=== PATIENT | male | born 1965 | race Caucasian/White ===

== ENCOUNTER 2016-11-24 09:27 | Emergency (ER) | payer BC ==
[2016-11-24] MEDS ORDERED: ACETAMINOPHEN TAB 500 MG TAB PO STA (10:04)
--- NOTE | 2016-11-24 10:05 | ED ---
General Adult HPI - General Chief complaint: Upper Respiratory Infection Stated complaint: JACLYN, RIB PAIN RADIATING TO BACK, COUGHING Time Seen by Provider: 11/24/16 09:56 Source: patient, RN notes reviewed Mode of arrival: ambulatory Limitations: no limitations - History of Present Illness Initial comments: Patient is a 51-year-old male who presents emergency room today with a chief complaint of cough congestion over the last 2 days. He does admit to sputum production as been white in color. There is some mild body aches. States not noticed any fevers at home. No chills. Patient does admit to increased rhinorrhea with a mild sore throat. He states because she is expressing some lower rib pain and back radiating around to the front. He denies any other complaints or associated symptoms. Patient denies any recent fever, chills, shortness of breath, chest pain, back pain, abdominal pain, nausea or vomiting, numbness or tingling, dysuria or hematuria, constipation or diarrhea, headaches or visual changes, or any other complaints. - Related Data Previous Rx's Medication Instructions Recorded Ibuprofen [Motrin] 600 mg PO Q6HR PRN #40 day 11/24/16 Oseltamivir [Tamiflu] 75 mg PO Q12HR 5 Days 11/24/16 Allergies Allergy/AdvReac Type Severity Reaction Status Date / Time No Known Allergies Allergy Verified 11/24/16 09:42 Review of Systems ROS Statement: Those systems with pertinent positive or pertinent negative responses have been documented in the HPI. ROS Other: All systems not noted in ROS Statement are negative. Past Medical History Past Medical History: No Reported History History of Any Multi-Drug Resistant Organisms: None Reported Past Surgical History: No Surgical Hx Reported Past Psychological History: No Psychological Hx Reported Smoking Status: Current some day smoker Past Alcohol Use History: None Reported Past Drug Use History: None Reported General Exam - General Exam Comments Initial Comments: General: The patient is awake and alert, in no distress, and does not appear acutely ill. Eye: Pupils are equal, round and reactive to light, extra-ocular movements are intact. No nystagmus. There is normal conjunctiva bilaterally. No signs of icterus. Ears, nose, mouth and throat: There are moist mucous membranes and no oral lesions. TMs clear bilaterally. Neck: The neck is supple, there is no tenderness or JVD. Cardiovascular: There is a regular rate and rhythm. No murmur, rub or gallop is appreciated. Respiratory: Lungs are clear to auscultation, respirations are non-labored, breath sounds are equal. No wheezes, stridor, rales, or rhonchi. Gastrointestinal: Soft, non-distended, non-tender abdomen without masses or organomegaly noted. There is no rebound or guarding present. No CVA tenderness. Bowel sounds are unremarkable. Musculoskeletal: Normal ROM, no tenderness. Strength 5/5. Sensation intact. Pulses equal bilaterally 2+. Neurological: A&O x 3. CN II-XII intact, There are no obvious motor or sensory deficits. Coordination appears grossly intact. Speech is normal. Skin: Skin is warm and dry and no rashes or lesions are noted. Psychiatric: Cooperative, appropriate mood & affect, normal judgment. Limitations: no limitations Course Vital Signs 11/24/16 09:38 Temperature 101.3 F H Pulse Rate 128 H Respiratory 18 Rate Blood Pressure 136/76 O2 Sat by Pulse 95 Oximetry Medical Decision Making - Medical Decision Making Patient reexamined at this time shows no signs of distress. Chest x-ray negative. Patient's influenza be positive. Will be started on Tamiflu his symptoms started 2 days ago. Advised Tylenol/ibuprofen for pain and body aches. Will be given cough suppressant to go home with. - Lab Data Lab Results 11/24/16 Range/Units 10:12 Influenza Type A RNA Not Detected (Not Detectd) Influenza Type B (PCR) Detected H (Not Detectd) Disposition Clinical Impression: Influenza B Disposition: HOME SELF-CARE Condition: Good Instructions: Influenza (ED) Additional Instructions: Please use medication as discussed. Please follow-up with family doctor in the next 2 days of symptoms have not improved. Please return to emergency room if the symptoms increase or worsen or for any other concerns. Prescriptions: Ibuprofen [Motrin] 600 mg PO Q6HR PRN #40 day PRN Reason: Pain Oseltamivir [Tamiflu] 75 mg PO Q12HR 5 Days Time of Disposition: 11:13
--- NOTE | 2016-11-24 10:57 | XR ---
EXAMINATION TYPE: XR chest 2V DATE OF EXAM: 11/24/2016 10:53 AM COMPARISON: NONE HISTORY: Cough and flulike symptoms per patient. Chest pain per order TECHNIQUE: Frontal and lateral views of the chest are obtained. FINDINGS: There is no focal air space opacity, pleural effusion, or pneumothorax seen. The cardiac silhouette size is within normal limits. The osseous structures are intact. IMPRESSION: No suspicious acute infiltrate is present.
[2016-11-24 11:28] VITALS: BP 149/75; PULSE 105; RESP 20; TEMP 99.9
== END 2016-11-24 11:27 | disposition home or self-care (01) ==
LOC: EC 09:27
DX: J10.1 Influenza due to other identified influenza virus with other respiratory manifestations (principal); F17.200 Nicotine dependence, unspecified, uncomplicated
CPT/HCPCS: 71020; 87502; 99283

== ENCOUNTER → 2018-01-06 | Outpatient (CLI) | payer BC ==
--- NOTE | 2018-01-06 15:57 | XR ---
EXAMINATION TYPE: XR shoulder complete RT DATE OF EXAM: 01/06/2018 CLINICAL HISTORY: Persistent pain TECHNIQUE: Three views of the right shoulder are obtained. COMPARISON: None. FINDINGS: There is no acute fracture/dislocation evident in the right shoulder. The acromioclavicul ar and glenohumeral joint spaces appear within normal limits. The visualized ribs and right lung are intact and unremarkable. IMPRESSION: Unremarkable study.
--- NOTE | 2018-01-06 15:59 | XR ---
EXAMINATION TYPE: XR cervical spine limited DATE OF EXAM: 01/06/2018 TECHNIQUE: Frontal, lateral, and swimmer's view of the cervical spine are obtained. HISTORY: [id number] cervicalgia, COMPARISON: None FINDINGS: The cervical spine is visualized in its entirety from C1 thru the top of T1 level, it is s traightened in alignment without evidence of acute fracture or dislocation. The pre-vertebral soft t issue appears within normal limits. The C1-C2 articulation is suboptimally evaluated without dedicat ed open mouth view. There is mild to moderate disc space narrowing and mild anterior spurring C5-C6 l evel. There is mild disc space narrowing C6-C7 level. Overlying soft tissue is unremarkable. IMPRESSION: Straightening of cervical spine with degenerative changes C5-C6 and C6-C7 level.
== END | disposition home or self-care (01) ==
LOC: RADXRYALE 15:36
PROVIDERS: ATTEND Family Medicine
DX: M47.812 Spondylosis without myelopathy or radiculopathy, cervical region (principal); M43.8X2 Other specified deforming dorsopathies, cervical region; M25.511 Pain in right shoulder
CPT/HCPCS: 72040

== ENCOUNTER → 2018-02-07 | Outpatient (CLI) | payer BC ==
--- NOTE | 2018-02-07 12:31 | MR ---
MRI CERVICAL SPINE: CLINICAL HISTORY: Cervicalgia and paresthesias scan per order. Headache with chronic neck pain into s houlder and right arm causing pain or numbness for 2 months per patient. TECHNIQUE: Multiplanar, multisequence imaging of the cervical spine is performed without IV contrast. COMPARISON: Cervical spine x-ray January 06, 2018 FINDINGS: Exam is suboptimal due to some motion artifact degradation particularly sagittal T2 sequenc es. Sagittal images of the cervical spine show the craniocervical junction to appear within normal li mits. The cervical and upper thoracic spinal cord is normal in course, caliber, and signal. Vertebr al alignment is anatomic. Mild disc space narrowing C4-C5 through C6-C7 levels with small posterior d isc herniations mildly effacing anterior thecal sac are seen on sagittal images. The vertebral body a nd intravertebral disk heights otherwise are normal. The bone marrow signal intensity is within norm al limits. No significant spurring is seen. Axial images show the C2-C3 and C3-C4 levels to appear within normal limits. Axial images at C4-C5 level show some uncovertebral facet degenerative changes bilaterally neural for maria m are patent. There is right paracentral disc protrusion mildly effacing anterior thecal sac on a xial image 37. Axial images at C5-C6 level show broad-based posterior disc protrusion with more prominent right para central component axial image 26 effacing anterior thecal sac and causing moderate right greater than left bilateral neural foraminal narrowing. Axial images at C6-C7 level show tiny central disc protrusion mildly effacing anterior thecal sac, bi lateral neural foramina are patent. Axial images at C7-T1 level are felt within normal limits. Somewhat small size thyroid gland is seen. Artifact from mandibular cavitary fillings or crown are no elina superiorly. IMPRESSION: Multilevel degenerative changes most prominent at C5-C6 level as detailed above.
== END | disposition home or self-care (01) ==
LOC: RADMRIMAIN 11:03
PROVIDERS: ATTEND Family Medicine
DX: M48.02 Spinal stenosis, cervical region (principal); M50.30 Other cervical disc degeneration, unspecified cervical region
CPT/HCPCS: 72141

== ENCOUNTER → 2018-08-20 | Outpatient (CLI) | payer SELFPAY ==
--- NOTE | 2018-08-20 09:59 | XR ---
EXAMINATION TYPE: XR chest 2V DATE OF EXAM: 08/20/2018 COMPARISON: 11/24/2016 HISTORY: Cough and shortness of breath. TECHNIQUE: Frontal and lateral views of the chest are obtained. FINDINGS: Minimal linear left basilar atelectasis appears improved from the prior exam There is no f ocal air space opacity, pleural effusion, or pneumothorax seen. The cardiac silhouette size is withi n normal limits. The osseous structures are intact. Very minimal degenerative changes of the thorac ic spine are noted. IMPRESSION: Minimal linear left basilar atelectasis has improved from the prior. No new focal consol idation.
== END | disposition home or self-care (01) ==
LOC: RADXRYALE 08:37
PROVIDERS: ATTEND Physician Assistant Medical
DX: J98.11 Atelectasis (principal); Z87.891 Personal history of nicotine dependence
CPT/HCPCS: 71046

== ENCOUNTER 2023-06-13 01:02 | Emergency (ER) | payer BC ==
[2023-06-13 01:13] VITALS: RESP 18
[2023-06-13] MEDS ORDERED: ONDANSETRON 4 MG/2 ML VIAL IVP STA (01:24)
[2023-06-13] MEDS ORDERED: SODIUM CHLORIDE 0.9% 1,000 ML IV STA (01:24)
[2023-06-13] MEDS ORDERED: KETOROLAC 15 MG/ML 1 ML VIAL IVP STA (01:24)
--- NOTE | 2023-06-13 01:34 | ED ---
Abdominal Pain HPI - General Source: patient, RN notes reviewed Mode of arrival: ambulatory Limitations: no limitations - History of Present Illness MD Complaint: abdominal pain Location: RUQ, epigastric Radiation: chest <Lissa Castro - Last Filed: 06/13/23 05:17> <Tanya Dawson P - Last Filed: 06/13/23 08:22> - General Chief Complaint: Abdominal Pain Stated Complaint: Upper abdominal Pain Time Seen by Provider: 06/13/23 01:15 - History of Present Illness Initial Comments: This is a 57-year-old male who presents to the emergency department for abdominal pain. States that he was in bed, and around midnight he was woken up by pain in the right upper quadrant to epigastric region. This has started to radiate into the chest, down the abdomen, and into the back as well. Denies any history of similar symptoms in the past. He is also feeling nauseous. States that he had pizza for dinner last night. Denies any known gallbladder issues. Denies any changes in bowel/bladder habits. Denies any fevers, chills, sore throat, cough, dyspnea, palpitations, diarrhea, or headaches. (Lissa Castro) - Related Data Previous Rx's Medication Instructions Recorded Ibuprofen [Motrin] 600 mg PO Q6HR PRN #40 day 11/24/16 Oseltamivir [Tamiflu] 75 mg PO Q12HR 5 Days cap 11/24/16 Allergies Allergy/AdvReac Type Severity Reaction Status Date / Time No Known Allergies Allergy Verified 06/13/23 01:10 Review of Systems ROS Other: All systems not noted in ROS Statement are negative. <Lissa Castro - Last Filed: 06/13/23 05:17> ROS Other: All systems not noted in ROS Statement are negative. <Tanya Dawson P - Last Filed: 06/13/23 08:22> ROS Statement: Those systems with pertinent positive or pertinent negative responses have been documented in the HPI. Past Medical History Past Medical History: COPD History of Any Multi-Drug Resistant Organisms: None Reported Past Surgical History: No Surgical Hx Reported Past Psychological History: No Psychological Hx Reported Smoking Status: Former smoker Past Alcohol Use History: None Reported Past Drug Use History: None Reported <Lissa Castro - Last Filed: 06/13/23 05:17> General Exam Limitations: no limitations General appearance: alert, in no apparent distress Head exam: Present: atraumatic, normocephalic, normal inspection Respiratory exam: Present: normal lung sounds bilaterally. Absent: respiratory distress, wheezes, rales, rhonchi, stridor Cardiovascular Exam: Present: regular rate, normal rhythm, normal heart sounds. Absent: systolic murmur, diastolic murmur, rubs, gallop, clicks GI/Abdominal exam: Present: soft, tenderness (RUQ and epigastric), normal bowel sounds. Absent: distended Neurological exam: Present: alert, oriented X3, CN II-XII intact Psychiatric exam: Present: normal affect, normal mood Skin exam: Present: warm, dry, intact, normal color. Absent: rash <Lissa Castro - Last Filed: 06/13/23 05:17> Course Vital Signs 06/13/23 06/13/23 01:11 04:09 Temperature 97.6 F 98.6 F Pulse Rate 86 78 Respiratory 18 18 Rate Blood Pressure 162/94 121/72 O2 Sat by Pulse 98 97 Oximetry Medical Decision Making - Lab Data Result diagrams: 06/13/23 01:29 06/13/23 01:29 - Radiology Data Radiology results: report reviewed, image reviewed <Lissa Castro - Last Filed: 06/13/23 05:17> - Lab Data Result diagrams: 06/13/23 01:29 06/13/23 01:29 <Tanya Dawson - Last Filed: 06/13/23 08:22> - Medical Decision Making This is a 57-year-old male who presents to the emergency department for abdominal pain. Was pt. sent in by a medical professional or institution? @ -No Did you speak to anyone other than the patient for history? @ -No Did you review nursing and triage notes? @ -Yes, and I agree, it is accurate with regards to the patient's symptoms. Were old charts reviewed? @ -No Differential Diagnosis? @ -Differential Abdominal Pain Men: Appendicitis, cholecystitis, diverticulosis, ischemic bowel, pancreatitis, hepatitis, UTI, gastroenteritis, AAA, incarcerated hernia, bowel obstruction, constipation, inflammatory bowel, hepatitis, peptic ulcer disease, splenic infarction, perforated viscus, testicular torsion, this is not meant to be an all-inclusive list EKG interpreted by me (3pts min.)? @ -EKG interpreted by me demonstrating the following: Sinus rhythm. Ventricular rate 77 bpm, FL interval 171 ms, QRS duration 90 ms, QTC 392 ms. X-rays interpreted by me (1pt min.)? @ -Not obtained CT interpreted by me (1pt min.)? @ -Pending U/S interpreted by me (1pt. min.)? @ -Not obtained What testing was considered but not performed? (CT, X-rays, U/S, labs)? Why? @ -None What meds were considered but not given? Why? @ -None Did you discuss the management of the patient with other professionals? @ -No Did you reconcile home meds? @ -No Was smoking cessation discussed for >3mins.? @ -No Was critical care preformed (if so, how long)? @ -No Were there social determinants of health that impacted care today? How? (H omelessness, low income, unemployed, alcoholism, drug addiction, transportation, low edu. Level, literacy, decrease access to med. care, half-way, rehab)? @ -No Was there de-escalation of care discussed even if they declined? (Discuss DNR or withdrawal of care, Hospice)? @ -No What co-morbidities impacted this encounter? (DM, HTN, Smoking, COPD, CAD, Cancer, CVA, Hep., AIDS, mental health diagnosis, sleep apnea, morbid obesity)? @ -None Was patient admitted / discharged? @ -Lab work obtained and found to be nonactionable. Patient given IV fluids, Zofran, and Toradol with improvement in symptoms. Computed tomography scan of the abdomen and pelvis obtained. Case signed out to ED attending, Dr. Dawson, at shift completion pending results of computed tomography scan. Undiagnosed new problem with uncertain prognosis? @ -None Drug Therapy requiring intensive monitoring for toxicity (Heparin, Nitro, Insu tova, Cardizem)? @ -None Were any procedures done? @ -None (Lissa Castro) Hospital Course Discharge home Patient's CT negative, results were discussed, I did offer US but patient eager for d/c and comfortable at this time would like to be discharged home with follow-up palpation or return if needed Diagnosis/symptom? @ -Abdominal pain Acute, or Chronic, or Acute on Chronic? @ -default Uncomplicated (without systemic symptoms) or Complicated (systemic symptoms)? @ -default Side effects of treatment? @ -none Exacerbation, Progression, or Severe Exacerbation] @ -no Poses a threat to life or bodily function? @ -no (Tanya Dawson) - Lab Data Lab Results 06/13/23 06/13/23 06/13/23 Range/Units 01:29 01:29 01:29 WBC 8.1 (3.8-10.6) k/uL RBC 4.95 (4.30-5.90) m/uL Hgb 15.3 (13.0-17.5) gm/dL Hct 44.9 (39.0-53.0) % MCV 90.8 (80.0-100.0) fL MCH 30.9 (25.0-35.0) pg MCHC 34.0 (31.0-37.0) g/dL RDW 13.0 (11.5-15.5) % Plt Count 250 (150-450) k/uL MPV 7.3 Neutrophils % 57 % Lymphocytes % 31 % Monocytes % 6 % Eosinophils % 4 % Basophils % 1 % Neutrophils # 4.6 (1.3-7.7) k/uL Lymphocytes # 2.5 (1.0-4.8) k/uL Monocytes # 0.5 (0-1.0) k/uL Eosinophils # 0.3 (0-0.7) k/uL Basophils # 0.0 (0-0.2) k/uL Sodium 138 (137-145) mmol/L Potassium 4.5 (3.5-5.1) mmol/L Chloride 108 H (98-107) mmol/L Carbon Dioxide 22 (22-30) mmol/L Anion Gap 8 mmol/L BUN 18 (9-20) mg/dL Creatinine 0.92 (0.66-1.25) mg/dL Est GFR (CKD-EPI)AfAm >90 (>60 ml/min/1.73 sqM) Est GFR (CKD-EPI)NonAf >90 (>60 ml/min/1.73 sqM) Glucose 100 H (74-99) mg/dL Plasma Lactic Acid Joe 0.8 (0.7-2.0) mmol/L Calcium 8.8 (8.4-10.2) mg/dL Total Bilirubin 0.5 (0.2-1.3) mg/dL AST 29 (17-59) U/L ALT 31 (4-49) U/L Alkaline Phosphatase 50 (38-126) U/L Troponin I (0.000-0.034) ng/mL Total Protein 6.6 (6.3-8.2) g/dL Albumin 3.9 (3.5-5.0) g/dL Amylase 40 (30-110) U/L Lipase 106 (23-300) U/L 06/13/23 Range/Units 01:29 WBC (3.8-10.6) k/uL RBC (4.30-5.90) m/uL Hgb (13.0-17.5) gm/dL Hct (39.0-53.0) % MCV (80.0-100.0) fL MCH (25.0-35.0) pg MCHC (31.0-37.0) g/dL RDW (11.5-15.5) % Plt Count (150-450) k/uL MPV Neutrophils % % Lymphocytes % % Monocytes % % Eosinophils % % Basophils % % Neutrophils # (1.3-7.7) k/uL Lymphocytes # (1.0-4.8) k/uL Monocytes # (0-1.0) k/uL Eosinophils # (0-0.7) k/uL Basophils # (0-0.2) k/uL Sodium (137-145) mmol/L Potassium (3.5-5.1) mmol/L Chloride (98-107) mmol/L Carbon Dioxide (22-30) mmol/L Anion Gap mmol/L BUN (9-20) mg/dL Creatinine (0.66-1.25) mg/dL Est GFR (CKD-EPI)AfAm (>60 ml/min/1.73 sqM) Est GFR (CKD-EPI)NonAf (>60 ml/min/1.73 sqM) Glucose (74-99) mg/dL Plasma Lactic Acid Joe (0.7-2.0) mmol/L Calcium (8.4-10.2) mg/dL Total Bilirubin (0.2-1.3) mg/dL AST (17-59) U/L ALT (4-49) U/L Alkaline Phosphatase (38-126) U/L Troponin I <0.012 (0.000-0.034) ng/mL Total Protein (6.3-8.2) g/dL Albumin (3.5-5.0) g/dL Amylase (30-110) U/L Lipase (23-300) U/L Disposition <Lissa Castro - Last Filed: 06/13/23 05:17> Is patient prescribed a controlled substance at d/c from ED?: No <Tanya Dawson - Last Filed: 06/13/23 08:22> Clinical Impression: Abdominal pain, Biliary colic Disposition: HOME SELF-CARE Instructions (If sedation given, give patient instructions): Biliary Colic (ED) Referrals: Chanell Velasco, PAC [Primary Care Provider] - 1-2 days
[2023-06-13 01:58] LABS: Basophils % (A) 1 %; Eosinophils # (A) 0.3 k/uL (0-0.7); Eosinophils % (A) 4 %; HCT 44.9 % (39.0-53.0); HGB 15.3 gm/dL (13.0-17.5); Lymphocytes # (A) 2.5 k/uL (1.0-4.8); Lymphocytes % (A) 31 %; MCH 30.9 pg (25.0-35.0); MCV 90.8 fL (80.0-100.0); Mean Platelet Volume 7.3; Monocytes # (A) 0.5 k/uL (0-1.0); Monocytes % (A) 6 %; Neutrophils # (A) 4.6 k/uL (1.3-7.7); Neutrophils % (A) 57 %; Platelet Count 250 k/uL (150-450); RBC 4.95 m/uL (4.30-5.90); WBC 8.1 k/uL (3.8-10.6)
[2023-06-13 02:14] LABS: ALT 31 U/L (4-49); AST 29 U/L (17-59); African American GFR (CKD) >90 (>60 ml/min/1.73 sqM); Albumin 3.9 g/dL (3.5-5.0); Alkaline Phosphatase 50 U/L (38-126); Amylase 40 U/L (30-110); Anion Gap 8 mmol/L; Blood Urea Nitrogen 18 mg/dL (9-20); Calcium 8.8 mg/dL (8.4-10.2); Carbon Dioxide 22 mmol/L (22-30); Chloride 108 mmol/L (98-107); Glucose 100 mg/dL (74-99); Lipase 106 U/L (23-300); Non-African American GFR(CKD) >90 (>60 ml/min/1.73 sqM); Potassium 4.5 mmol/L (3.5-5.1); Sodium 138 mmol/L (137-145); Total Bilirubin 0.5 mg/dL (0.2-1.3); Total Protein 6.6 g/dL (6.3-8.2)
[2023-06-13 04:20] VITALS: BP 121/72; PULSE 78; TEMP 98.6
--- NOTE | 2023-06-13 05:46 | CT ---
EXAM: CT Abdomen and Pelvis With Intravenous Contrast CLINICAL HISTORY: ITS.REASON CT Reason: Epigastric pain TECHNIQUE: Axial computed tomography images of the abdomen and pelvis with intravenous contrast. CTDI is 26.1 mGy and DLP is 1294.1 mGy-cm. This CT exam was performed using one or more of the following dose reduction techniques: automated exposure control, adjustment of the mA and/or kV according to patient size, and/or use of iterative reconstruction technique. COMPARISON: No relevant prior studies available. FINDINGS: Lung bases: Dependent scarring at the lung bases. ABDOMEN: Liver: Unremarkable. No mass. Gallbladder and bile ducts: Cholelithiasis. No gross findings to suggest cholecystitis. No ductal dilation. Pancreas: No evidence of pancreatitis. No ductal dilation. Spleen: Unremarkable. No splenomegaly. Adrenals: Unremarkable. No mass. Kidneys and ureters: Unremarkable. No solid mass. No hydronephrosis. Stomach and bowel: No evidence of bowel obstruction. Colonic diverticulosis. No evidence of diverticulitis. Duodenal diverticulum. PELVIS: Appendix: Normal appendix. Bladder: Unremarkable. No mass. Reproductive: Unremarkable as visualized. ABDOMEN and PELVIS: Intraperitoneal space: Unremarkable. No free air. No significant fluid collection. Bones/joints: Degenerative changes in the spine. No acute fracture. No dislocation. Soft tissues: Left inguinal hernia containing fat. Umbilical hernia containing fat. Vasculature: Atherosclerotic disease. No abdominal aortic aneurysm. Lymph nodes: Unremarkable. No enlarged lymph nodes. IMPRESSION: No acute findings on CT abdomen/pelvis with incidental findings as described.
== END 2023-06-13 06:42 | disposition home or self-care (01) ==
LOC: EC 01:02
DX: K80.50 Calculus of bile duct without cholangitis or cholecystitis without obstruction (principal); J44.9 Chronic obstructive pulmonary disease, unspecified; Z87.891 Personal history of nicotine dependence
CPT/HCPCS: 36415; 93005; 80053; 82150; 83605; 83690; 84484; 85025; 74177; 99284; 96374; 96375; 96361; J2405; J1885; Q9967